=== PATIENT | female | born 1950 | race Caucasian/White ===

== ENCOUNTER 2019-02-23 12:28 | Outpatient (CLI) | payer MEDICARE, MEDICAID ==
--- NOTE | 2019-02-23 13:02 | RAD ---
RADIOGRAPH CHEST 2 VIEWS: HISTORY: A 68-year-old female for preoperative clearance. FINDINGS: The thoracic aorta is tortuous and ectatic. There is no evidence of air space density, pneumothorax, or pulmonary edema. There is no cardiomegaly or pleural effusion. IMPRESSION: 1) No acute cardiopulmonary findings. 2) Ectasia of thoracic aorta. jn [] POS: [facility] [place]
--- NOTE | 2019-02-23 14:22 | MMO ---
Bilateral MAMMO Bilat Screen [facility]. CLINICAL HISTORY: Patient is 68 years old and is seen for screening. The patient has no family history of breast cancer. The patient has no personal history of cancer. VIEWS: The views performed were: bilateral craniocaudal with tomosynthesis; bilateral mediolateral oblique with tomosynthesis; and right mediolateral oblique. FILMS COMPARED: The present examination has been compared to prior imaging studies performed at [facility] on 07/27/2007, and at [facility] on 10/17/2009, 10/21/2014 and 12/13/2016. MAMMOGRAM FINDINGS: There are scattered fibroglandular densities. There are no suspicious masses, suspicious calcifications, or new areas of architectural distortion. IMPRESSION: THERE IS NO MAMMOGRAPHIC EVIDENCE OF MALIGNANCY. A ROUTINE FOLLOW-UP MAMMOGRAM IN 1 YEAR IS RECOMMENDED. THE RESULTS OF THIS EXAM WERE SENT TO THE PATIENT. ACR BI-RADS Category 1 - Negative MAMMOGRAPHY NOTE: 1. A negative mammogram report should not delay a biopsy if a dominant of clinically suspicious mass is present. 2. Approximately 10% to 15% of breast cancers are not detected by mammography. 3. Adenosis and dense breasts may obscure an underlying neoplasm.
== END 2019-02-23 12:29 | disposition home or self-care (01) ==
LOC: BICMAMMO 12:28
PROVIDERS: ATTEND Family Medicine
DX: Z12.31 Encounter for screening mammogram for malignant neoplasm of breast (principal); Z01.818 Encounter for other preprocedural examination; I77.810 Thoracic aortic ectasia
CPT/HCPCS: 71046; 77063; 77067

== ENCOUNTER 2019-03-29 12:10 | Outpatient (CLI) | payer MEDICARE, MEDICAID ==
--- NOTE | 2019-03-29 13:13 | ULT ---
US Abdominal History: [Abdominal pain] Comparison: None. Findings: Real-time grayscale and color evaluation of the abdomen was performed. Visualized portion of pancreatic body is unremarkable. Mild diffuse increased hepatic echotexture. Th e visualized portion of the aorta and IVC are unremarkable. Mild diffuse increased hepatic echotexture. No hepatic mass. No perihepatic fluid. There is cholelithiasis without cholecystitis. Gallbladder wall thickness is normal. Portal vein is p atent with antegrade flow. Common bile duct is normal measuring 4 mm. Right the measures 11.7 x 5.4 x 5.4 cm without mass, hydro nephrosis, or abnormal calcifications. Spleen measures 8.7 cm in length. Left kidney measures 10.1 x 5.5 x 5.1 cm without mass, hydronephrosis, or abnormal calcifications. Impression: 1. Diffusely hepatic steatosis. 2. Cholelithiasis without cholecystitis.
== END 2019-03-29 12:11 | disposition home or self-care (01) ==
LOC: BICULT 12:10
PROVIDERS: ATTEND Family Medicine
DX: R10.84 Generalized abdominal pain (principal); K76.0 Fatty (change of) liver, not elsewhere classified; K80.20 Calculus of gallbladder without cholecystitis without obstruction
CPT/HCPCS: 76700

== ENCOUNTER 2019-09-25 15:36 | Outpatient (CLI) | payer MEDICARE, MEDICAID ==
--- NOTE | 2019-09-25 15:56 | RAD ---
EXAM: Chest 2 views: HISTORY: Preoperative radiograph COMPARISON: 02/23/2019 FINDINGS: There is a normal-sized cardiomediastinal silhouette. Atherosclerotic calcifications are seen in the aorta. There is no evidence of consolidation, mass, or pleural effusion. The bones are unremarkable. IMPRESSION: No evidence of acute cardiopulmonary disease
== END 2019-09-25 15:37 | disposition home or self-care (01) ==
LOC: BICRAD 15:36
PROVIDERS: ATTEND Family Medicine
DX: Z01.818 Encounter for other preprocedural examination (principal)
CPT/HCPCS: 71046

== ENCOUNTER 2021-02-18 08:18 | Outpatient (CLI) | payer MEDICARE, MEDICAID | END 2021-02-18 08:19 | disposition home or self-care (01) | LOC: BICMAMMO 08:18 | PROVIDERS: ATTEND Family Medicine | DX: Z12.31 Encounter for screening mammogram for malignant neoplasm of breast (principal) | CPT/HCPCS: 77063; 77067 ==

== ENCOUNTER 2021-09-22 19:00 | Outpatient (CLI) | payer MEDICARE, MEDICAID | END 2021-09-22 19:01 | disposition home or self-care (01) | LOC: SLEEPLAB 19:00 | PROVIDERS: ATTEND Family Medicine | DX: G47.33 Obstructive sleep apnea (adult) (pediatric) (principal); G47.9 Sleep disorder, unspecified; R09.89 Other specified symptoms and signs involving the circulatory and respiratory systems; I11.9 Hypertensive heart disease without heart failure; R06.83 Snoring; G47.00 Insomnia, unspecified; F41.9 Anxiety disorder, unspecified; F32.9 Major depressive disorder, single episode, unspecified; G47.10 Hypersomnia, unspecified; I48.91 Unspecified atrial fibrillation; K21.9 Gastro-esophageal reflux disease without esophagitis; R09.02 Hypoxemia; E66.9 Obesity, unspecified; Z68.43 Body mass index [BMI] 50.0-59.9, adult | CPT/HCPCS: 95810 ==